=== PATIENT | female | born 1990 | race American Indian/Alaskan Native ===

== ENCOUNTER 2019-01-11 14:59 | Emergency (ER) | payer OTHER ==
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
[2019-01-11] MEDS ORDERED: IBUPROFEN 800 MG TAB PO ONE (16:36)
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
[2019-01-11 18:51] VITALS: BP 143/48
== END 2019-01-11 18:55 | disposition home or self-care (01) ==
LOC: ED 14:59
DX: S39.012A Strain of muscle, fascia and tendon of lower back, initial encounter (principal); S13.4XXA Sprain of ligaments of cervical spine, initial encounter; S00.03XA Contusion of scalp, initial encounter; F12.10 Cannabis abuse, uncomplicated; Z79.899 Other long term (current) drug therapy; V49.59XA Passenger injured in collision with other motor vehicles in traffic accident, initial encounter; Y93.89 Activity, other specified; Y92.410 Unspecified street and highway as the place of occurrence of the external cause; Y99.8 Other external cause status
CPT/HCPCS: 70450; 72040; 72100

== ENCOUNTER 2020-08-05 16:55 | Emergency (ER) | payer SELFPAY ==
[2020-08-05 17:18] VITALS: BP 113/57
== END 2020-08-05 20:41 | disposition left against medical advice (07) ==
LOC: ED 16:55
DX: R51.9 Headache, unspecified (principal); Z53.21 Procedure and treatment not carried out due to patient leaving prior to being seen by health care provider

== ENCOUNTER 2020-08-09 08:38 | Emergency (ER) | payer SELFPAY ==
--- NOTE | 2020-08-09 09:09 | Emergency Department Report ---
Stated Complaint: NEEDS WORK RELEASE Time Seen by Provider: 08/09/20 09:07 - HPI History of Present Illness: NO ILLNESS HERE FOR WORK NOTE - ROS Review of Systems: NO ILLNES - Exam Vital Signs: NORMAL DOCUMENTED MANUALLY BY RN Physical Exam: A/O S1S2 LUNGS CTA ABD SNT MSE screening note: Focused history and physical exam performed. Due to findings the following was ordered: RECENTLY MISSED WORK DUE TO IN FAMILY WANTS HER PAPER WORK FILLED OUT EXPLAINED TO PT WE DO NOT DO THAT DC TO PCP Patient discussed with doctor:: LEXI HALL ED Disposition for MSE Clinical Impression: Wellness examination Disposition: MED SCREENING EXAM-LEFT Is pt being admited?: No Does the pt Need Aspirin: No Condition: Stable Referrals: BERNARD LEMUS MD [Staff Physician] - 3-5 Days Time of Disposition: 09:09
== END 2020-08-09 09:10 | disposition left against medical advice (07) ==
LOC: ED 08:38
DX: Z00.00 Encounter for general adult medical examination without abnormal findings (principal); Z53.21 Procedure and treatment not carried out due to patient leaving prior to being seen by health care provider